=== PATIENT | female | born 1990 | race African-American/Black ===

== ENCOUNTER 2018-04-16 19:18 | Emergency (ER) | payer SELFPAY ==
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
[2018-04-16 21:10] VITALS: BP 135/94
== END 2018-04-16 21:08 | disposition home or self-care (01) ==
LOC: ER 19:18
DX: S00.83XA Contusion of other part of head, initial encounter (principal); R51 Headache; R04.0 Epistaxis; Y04.2XXA Assault by strike against or bumped into by another person, initial encounter; S10.91XA Abrasion of unspecified part of neck, initial encounter; Y08.89XA Assault by other specified means, initial encounter; Y92.009 Unspecified place in unspecified non-institutional (private) residence as the place of occurrence of the external cause
CPT/HCPCS: 70160; 99283

== ENCOUNTER 2018-04-28 18:00 | Emergency (ER) | payer SELFPAY ==
[2018-04-28 18:25] VITALS: BP 145/89
[2018-04-28 18:35] LABS: APPEARANCE,URINE SLIGHTLY-CLOUDY; BILIRUBIN,URINE NEGATIVE (NEGATIVE); COLOR,URINE YELLOW; GLUCOSE, URINE NEGATIVE (NEGATIVE); KETONES,URINE NEGATIVE (NEGATIVE); LEUKOCYTE ESTERASE,URINE TRACE (NEGATIVE); NITRITE,URINE NEGATIVE (NEGATIVE); PROTEIN,URINE NEGATIVE (NEGATIVE); URINE SPECIFIC GRAVITY 1.021; UROBILINOGEN,URINE NEGATIVE mg/dL (<2.0)
--- NOTE | 2018-04-28 18:57 | ER Document Report ---
ED GI/ - General Chief Complaint: Vag Bleeding, +preg <12wks Stated Complaint: ABDOMINAL PAIN, VAGINAL BLEEDING Time Seen by Provider: 04/28/18 18:49 Mode of Arrival: Ambulatory Notes: Chief complaint: Vaginal bleeding History of complain:( obtained from----patient) 27 years old female presents today with vaginal bleeding thinking that she is , mild cramps over the lower abdomen particularly over the suprapubic region. No fever chills or other constitutional symptoms. Her menstrual cycle is due at this time of the month. Onset: As above Duration: One day Severity: Mild Quality: Crampy Context: Exacerbating factor and relieving factors: REVIEW OF SYSTEMS: CONSTITUTIONAL : Denies fever, chills, or sweats. Denies recent illness. EENT: Denies eye, ear, throat, or mouth pain or symptoms. Denies nasal or sinus congestion or discharge. Denies throat, tongue, or mouth swelling or difficulty swallowing. CARDIOVASCULAR: Denies chest pain. Denies palpitations or racing or irregular heart beat. Denies ankle edema. RESPIRATORY: Denies cough, cold, or chest congestion. Denies shortness of breath, difficulty breathing, or wheezing. GASTROINTESTINAL: Denies distention. Denies nausea, vomiting, or diarrhea. Denies blood in vomitus, stools, or per rectum. Denies black, tarry stools. Denies constipation. GENITOURINARY: Denies difficulty urinating, painful urination, burning, frequency, blood in urine, or discharge. FEMALE GENITOURINARY: Denies vaginal bleeding, heavy or abnormal periods, irregular periods. Denies vaginal discharge or odor. MUSCULOSKELETAL: Denies back or neck pain or stiffness. Denies joint pain or swelling. SKIN: Denies rash, lesions or sores. HEMATOLOGIC : Denies easy bruising or bleeding. LYMPHATIC: Denies swollen, enlarged glands. NEUROLOGICAL: Denies confusion or altered mental status. Denies passing out or loss of consciousness. Denies dizziness or lightheadedness. Denies headache. Denies weakness or paralysis or loss of use of either side. Denies problems with gait or speech. Denies sensory loss, numbness, or tingling. Denies seizures. PSYCHIATRIC: Denies anxiety or stress. Denies depression, suicidal ideation, or homicidal ideation. ALL OTHER SYSTEMS REVIEWED AND NEGATIVE. PHYSICAL EXAMINATION: GENERAL: Well-appearing, well-nourished and in no acute distress. HEAD: Atraumatic, normocephalic. EYES: Pupils equal round and reactive to light, extraocular movements intact, conjunctiva are normal. ENT: Nares patent, oropharynx clear without exudates. Moist mucous membranes. NECK: Normal range of motion, supple without lymphadenopathy LUNGS: Breath sounds clear to auscultation bilaterally and equal. No wheezes rales or rhonchi. HEART: Regular rate and rhythm without murmurs ABDOMEN: Soft, nontender, nondistended abdomen. No guarding, no rebound. No masses appreciated. Examination of genitals-deferred Musculoskeletal: Normal range of motion, no pitting or edema. No cyanosis. NEUROLOGICAL: Cranial nerves grossly intact. Normal speech, normal gait. Normal sensory, motor exams PSYCH: Normal mood, normal affect. SKIN: Warm, Dry, normal turgor, no rashes or lesions noted. Dictation was performed using [employer] voice recognition software TRAVEL OUTSIDE OF THE [place] IN LAST 30 DAYS: No - HPI Notes: 04/28/18 18:54 Dictated - Related Data Allergies/Adverse Reactions: No Known Allergies Allergy (Unverified 04/16/18 19:19) Past Medical History - Social History Smoking Status: Never Smoker Cigarette use (# per day): No Frequency of alcohol use: Rare Drug Abuse: None Lives with: Family Family History: Reviewed & Not Pertinent Renal/ Medical History: Denies: Hx Peritoneal Dialysis Review of Systems - Review of Systems Notes: Dictated Physical Exam - Vital signs Vitals: Temp Pulse Resp BP Pulse Ox 99.0 F 74 16 145/89 H 100 04/28/18 18:11 04/28/18 18:11 04/28/18 18:11 04/28/18 18:11 04/28/18 18:11 - Notes Notes: Dictated Course - Vital Signs Vital signs: Temp Pulse Resp BP Pulse Ox 99.0 F 74 16 145/89 H 100 04/28/18 18:11 04/28/18 18:11 04/28/18 18:11 04/28/18 18:11 04/28/18 18:11 - Laboratory Laboratory results interpreted by me: 04/28/18 18:15 Urine Blood LARGE H Ur Leukocyte Esterase TRACE H Urine Ascorbic Acid 20 H Discharge - Discharge Clinical Impression: Vaginal bleeding, Menstrual cycles occur every 26 days Condition: Fair Disposition: HOME, SELF-CARE Instructions: Vaginal Bleeding ([facility]) Referrals: PING CHAVEZ MD [Primary Care Provider] - Follow up as needed
== END 2018-04-28 19:01 | disposition home or self-care (01) ==
LOC: ER 18:00
DX: N93.9 Abnormal uterine and vaginal bleeding, unspecified (principal); R10.30 Lower abdominal pain, unspecified
CPT/HCPCS: 81001; 81025; 87086; 99284